=== PATIENT | female | born 1995 | race Caucasian/White ===

== ENCOUNTER → 2020-02-20 | Outpatient (CLI) | payer OTHER ==
[2020-02-20 19:14] LABS: U Amphetamine Screen Not Detected; U Barbituate Screen Not Detected; U Benzodiazapine Screen Not Detected; U Buprenorphine Screen Not Detected; U Cannabinoids Screen Not Detected; U Cocaine Screen Not Detected; U Methadone Screen Not Detected; U Methamphetamine Screen Not Detected; U Opiates Screen DETECTED; U Oxycodone Screen Not Detected; U Phencyclidine Screen Not Detected; U Propoxyphene Screen Not Detected
[2020-02-22 05:10] LABS: CHLAMYDIA TRACHOMATIS, NAA Negative (Negative); NEISSERIA GONORRHOEAE, NAA Negative (Negative)
== END | disposition home or self-care (01) ==
LOC: LAB SHORT 16:52 → LAB 16:52
PROVIDERS: Obstetrics & Gynecology
DX: Z34.81 Encounter for supervision of other normal pregnancy, first trimester (principal)
CPT/HCPCS: 87086; 87491; 87591; G0480

== ENCOUNTER → 2020-08-06 | Outpatient (CLI) | payer OTHER ==
[~2020-08-06] MED LIST: DOXYLAMINE-PYR1 EAC1 PO; IRON18 MG PO; MIRALAX17 GM PO; NIFE60ER PO; PRENATAL TABLE1 EAC2 PO; Percocet 5-3251 EACH PO
== END | disposition home or self-care (01) ==
LOC: LAB 16:14 → LAB SHORT 16:14
DX: Z34.03 Encounter for supervision of normal first pregnancy, third trimester (principal); Z3A.29 29 weeks gestation of pregnancy
CPT/HCPCS: 87086

== ENCOUNTER 2020-10-16 05:23 | Inpatient (IN) | payer OTHER ==
[~2020-10-16] VITALS: Ht 172.7 cm; Wt 82.0 kg
[~2020-10-16 05:23] MED LIST changes: -DOXYLAMINE-PYR1 EAC1 PO; -Percocet 5-3251 EACH PO
[2020-10-16] MEDS ORDERED: DOXYLAMINE-PYR1 EAC1 PO (07:09)
[2020-10-16 07:11] LABS: BASOPHILS ABSOLUTE AUTO 0.02 K/mm3 (0.00-0.23); BASOPHILS PERCENT AUTO 0 % (0-2); EOSINOPHILS PERCENT AUTO 2 % (0-6); Hemoglobin 12.3 g/dL (11.5-16.0); IMMATURE GRAN ABSOLUTE AUTO 0.03 K/mm3 (0.00-0.10); IMMATURE GRAN PERCENT AUTO 1 % (0-1); LYMPHOCYTES ABSOLUTE AUTO 1.61 K/mm3 (0.84-5.20); LYMPHOCYTES PERCENT AUTO 26 % (21-46); MONOCYTES ABSOLUTE AUTO 0.44 K/mm3 (0.16-1.47); MONOCYTES PERCENT AUTO 7 % (4-13); Mean Corpuscular HGB Conc 33.2 g/dL (31.5-36.5); Mean Corpuscular Volume 93 fL (80-100); NEUTROPHILS ABSOLUTE AUTO 4.06 K/mm3 (1.96-9.15); NEUTROPHILS PERCENT AUTO 65 % (41-73); Platelet Count 108 K/mm3 (150-400); RDW Coefficient Variation 12.9 % (11.7-14.2); RDW Standard Deviation 43.9 fL (35.1-46.3); Red Blood Cell Count 3.97 M/mm3 (3.80-5.20); White Blood Cell Count 6.26 K/mm3 (4.00-11.30)
[2020-10-16 08:28] LABS: PCO2 Cord - Arterial 49.2 mmHg (40-50); PO2 Cord - Arterial 15.8 mmHg (16-20); pH Cord - Arterial 7.25 (7.28-7.35)
[2020-10-16 08:29] LABS: PCO2 Cord - Venous 36.7 mmHg (40-50); PO2 Cord - Venous 36.9 mmHg (28-32); pH Umbilical Cord - Venous 7.33 (7.26-7.35)
--- NOTE | 2020-10-16 08:31 | NUR ---
10/16/20 0831 LynnTonya M VIABLE FEMALE BORN AT 0814 WEIGHING 7-0 ([id number]) APGARS 9/9. CORD GASSES GIVEN TO MILAD VOGT. CORD BLOOD GIVEN TO ARIS BELLA. RIGHT AND LEFT FALLOPIAN TUBES COLLECTED, LABLED AND WILL BE SENT TO PATHOLOGY BY ERI ROSAS.
--- NOTE | 2020-10-16 21:37 | NUR ---
PT UP TO SHOWER PER PT REQUEST, SIMMONS DC'D AND DRESSING REMOVED.
[2020-10-17 05:28] LABS: BASOPHILS ABSOLUTE AUTO 0.02 K/mm3 (0.00-0.23); BASOPHILS PERCENT AUTO 0 % (0-2); EOSINOPHILS ABSOLUTE AUTO 0.07 K/mm3 (0.00-0.68); EOSINOPHILS PERCENT AUTO 1 % (0-6); Hematocrit 31.1 % (33.0-51.0); Hemoglobin 10.4 g/dL (11.5-16.0); IMMATURE GRAN ABSOLUTE AUTO 0.03 K/mm3 (0.00-0.10); IMMATURE GRAN PERCENT AUTO 0 % (0-1); LYMPHOCYTES ABSOLUTE AUTO 1.25 K/mm3 (0.84-5.20); LYMPHOCYTES PERCENT AUTO 19 % (21-46); MONOCYTES ABSOLUTE AUTO 0.36 K/mm3 (0.16-1.47); MONOCYTES PERCENT AUTO 5 % (4-13); Mean Corpuscular HGB 31.4 pg (26.0-34.0); Mean Corpuscular HGB Conc 33.4 g/dL (31.5-36.5); Mean Corpuscular Volume 94 fL (80-100); NEUTROPHILS ABSOLUTE AUTO 4.95 K/mm3 (1.96-9.15); NEUTROPHILS PERCENT AUTO 74 % (41-73); Platelet Count 93 K/mm3 (150-400); RDW Coefficient Variation 13.2 % (11.7-14.2); RDW Standard Deviation 45.1 fL (35.1-46.3); Red Blood Cell Count 3.31 M/mm3 (3.80-5.20); White Blood Cell Count 6.68 K/mm3 (4.00-11.30)
[2020-10-17 05:37] LABS: Mean Platelet Volume 13.6 fL (9.1-12.4)
[2020-10-17] MEDS ORDERED: Percocet 5-3251 EACH PO (09:43)
--- NOTE | 2020-10-17 10:40 | NUR ---
No acute changes this shift. Instructions reviewed w/patient by Troy Wu RN. ID bands matched w/nb and verification form. Pt denies additional questions/concerns. Pt d/c'd home ambulatory to care of .
== END 2020-10-17 10:40 | disposition home or self-care (01) | DRG 785 ==
LOC: BC 05:23
PROVIDERS: ADMIT Obstetrics & Gynecology
PROC: 10D00Z1 Extraction of Products of Conception, Low, Open Approach (ICD-10-PCS; principal; 2020-10-16 07:30)
PROC: 0UT70ZZ Resection of Bilateral Fallopian Tubes, Open Approach (ICD-10-PCS; 2020-10-16 07:30)
DX: O34.211 Maternal care for low transverse scar from previous cesarean delivery (principal); O99.824 Streptococcus B carrier state complicating childbirth; Z3A.39 39 weeks gestation of pregnancy; Z37.0 Single live birth; Z30.2 Encounter for sterilization; Z88.2 Allergy status to sulfonamides; Z79.899 Other long term (current) drug therapy
CPT/HCPCS: 36415; 82803; 85025; 86850; 86900; 86901; 88302; A9270; J0694; J1885; J2590; J2765; J3010; J7120